=== PATIENT | male | born 1980 | race Caucasian/White ===

== ENCOUNTER 2018-05-25 15:42 | Emergency (ER) | payer OTHER ==
[~2018-05-25] VITALS: Ht 182.9 cm; Wt 75.0 kg
[2018-05-25] MEDS ORDERED: NAPROSYN500 MG PO (16:23)
[2018-05-25 16:30] VITALS: BP 151/73
== END 2018-05-25 16:40 | disposition designated cancer center or children's hospital (05) | DRG 563 ==
LOC: ED 15:42
PROC: 0QSFXZZ Reposition Left Patella, External Approach (ICD-10-PCS; principal; 2018-05-25)
DX: S83.015A Lateral dislocation of left patella, initial encounter (principal); W03.XXXA Other fall on same level due to collision with another person, initial encounter; Y93.67 Activity, basketball; Y92.149 Unspecified place in prison as the place of occurrence of the external cause